=== PATIENT | male | born 2005 | race African-American/Black ===

== ENCOUNTER 2025-02-16 16:58 | Emergency (ER) | payer BC, SELFPAY ==
[2025-02-16] MEDS ORDERED: diphenhydrAMINE 50 MG/ML VIAL ONE (18:54)
[2025-02-16] MEDS ORDERED: Metoclopramide HCl 10 MG (2 mL) VIAL ONE (18:54)
== END 2025-02-16 20:10 | disposition home or self-care (01) ==
LOC: CSHERS 16:58
DX: R51.9 Headache, unspecified (principal)
CPT/HCPCS: 96374; 96375; J1200; J2765